=== PATIENT | female | born 1970 | race Caucasian/White ===

== ENCOUNTER 2018-10-23 16:20 | Inpatient (IN) | payer BC, OTHER ==
--- NOTE | 2018-10-23 16:28 | PDOC ---
Rapid Medical Evaluation Chief Complaint: Pain Time Seen by Provider: 10/23/18 16:26 Medical Evaluation: 10/23/18 16:27 I have performed a brief in person evaluation of this patient. The patient's CC: abd pain HPI: Pt is a 48 YO female who states she has had 2 days of N/V/D. She states she was exposed to C Diff. Denies recent abx use or recent travel. PE: Skin: Clear Heart: RRR Lungs: Clear MS. moves all extremities without difficulty. Neuro: Alert and oriented Psch: appropriate affect The patient will proceed to main ED for further evaluation. Discharge Disposition - Diagnosis Abdominal pain Qualifiers: Abdominal location: generalized Qualified Code(s): R10.84 - Generalized abdominal pain - Referrals Referrals: Yandel Dunaway [Primary Care Provider] - - Patient Instructions - Post Discharge Activity
[2018-10-23 16:30] VITALS: BMI 26.4
[2018-10-23 17:03] LABS: BASO % 1.2 % (0-2.0); EOS % 0.2 % (0-4.5); LYMPH % 9.1 % (8-40); MCHC 29.3 g/dl (32.0-36.0); MEAN CELL VOLUME 52.6 fl (80-96); MEAN PLT VOLUME 8.2 fl (7.5-11.1); MONO % 4.4 % (3.8-10.2); NEUT % 85.1 % (42.8-82.8); PLATELET COUNT 584 K/MM3 (134-434); RDW 20.3 % (11.6-15.6)
--- NOTE | 2018-10-23 17:05 | PDOC ---
Attending Attestation - HPI HPI: 10/23/18 19:24 The patient is a 48 year old female with a PMH of left nephrectomy presenting with nausea, vomiting, and diarrhea for the past 2 days. Patient states Patient reports 2 days of worsening non, bilious, non bloody emesis x 4/day, and multiple, loose, non bloody, stools x 8/day. + lightheadedness, fatigue, decreased appetite/PO intake. Patient noted that she is more pale appearing. Denies recent travels. + sick contacts c.diff at employer. No change in diet. Patient denies DAY, vision change, palpitations, leg pain/leg swelling, F,C, CP, SOB, urinary complaints, abdominal pain, BPR, hematuria, constipation, weakness , sensory changes. PMHx: as noted above. Denies h/o abdominal surgery. ROS: as noted Allergies: NKDA
[2018-10-23] MEDS ORDERED: SODIUM CHLORIDE 1,000 ML IV STA (17:11)
[2018-10-23] MEDS ORDERED: ONDANSETRON 4 MG/2 ML VIAL IVPB ONE (17:11)
--- NOTE | 2018-10-23 17:11 | PDOC ---
History of Present Illness - General Chief Complaint: Pain Stated Complaint: Vomiting/Diarrhea Time Seen by Provider: 10/23/18 16:26 - History of Present Illness Initial Comments: 10/23/18 17:27 48 yo F with h/o left nephrectomy, who p/w nausea, vomiting, diarrhea. Patient reports 2 days of worsening non, bilious, non bloody emesis x 4/day, and multiple, loose, non bloody, stools x 8/day. + lightheadedness, fatigue, decreased appetite/PO intake. Patient noted that she is more pale appearing. Denies recent travels. + sick contacts c.diff at employer. No change in diet. Patient denies DAY, vision change, palpitations, leg pain/leg swelling, F,C, CP, SOB, urinary complaints, abdominal pain, BPR, hematuria, constipation, weakness , sensory changes. PMHx: as noted above. Denies h/o abdominal surgery. ROS: as noted Allergies: NKDA Past History - Past Medical History Allergies/Adverse Reactions: Allergies Allergy/AdvReac Type Severity Reaction Status Date / Time No Known Allergies Allergy Verified 10/23/18 16:26 COPD: No - Immunization History Immunization Up to Date: Yes - Suicide/Smoking/Psychosocial Hx Smoking History: Never smoked Hx Alcohol Use: No Drug/Substance Use Hx: No Review of Systems - Review of Systems Comments:: 10/23/18 17:33 GENERAL/CONSTITUTIONAL: + weakness. No fever or chills. HEAD, EYES, EARS, NOSE AND THROAT: No change in vision. No ear pain or discharge. No sore throat. CARDIOVASCULAR: No chest pain or shortness of breath RESPIRATORY: No cough, wheezing, or hemoptysis. GASTROINTESTINAL: +nausea, vomiting, diarrhea. No constipation. GENITOURINARY: No dysuria, frequency, or change in urination. MUSCULOSKELETAL: No joint or muscle swelling or pain. No neck or back pain. SKIN: No rash NEUROLOGIC: + lightheadedness. No headache, vertigo, loss of consciousness, or change in strength/sensation. ENDOCRINE: No increased thirst. No abnormal weight change HEMATOLOGIC/LYMPHATIC: No anemia, easy bleeding, or history of blood clots. ALLERGIC/IMMUNOLOGIC: No hives or skin allergy. *Physical Exam - Vital Signs Last Vital Signs Temp Pulse Resp BP Pulse Ox 99.2 F 102 H 16 95/60 100 01/22/19 16:26 10/23/18 16:26 10/23/18 16:26 10/23/18 16:26 10/23/18 16:26 - Physical Exam Comments: 10/23/18 17:34 GENERAL: Pale appearing. Awake, alert, and fully oriented, in no acute distress HEAD: + Conjuctival pallor. No signs of trauma, normocephalic, atraumatic EYES: PERRLA, EOMI, sclera anicteric, conjunctiva clear ENT: + Dry mucous membranes. Auricles normal inspection, hearing grossly normal , nares patent, oropharynx clear without exudates. NECK: Normal ROM, supple, no lymphadenopathy, JVD, or masses LUNGS: No distress, speaks full sentences, clear to auscultation bilaterally HEART: irregular rate and nml rhythm, normal S1 and S2, no murmurs, rubs or gallops, peripheral pulses normal and equal bilaterally. ABDOMEN: Soft, nontender, normoactive bowel sounds. No guarding, no rebound. No masses. Neg CVA ttp. RECTAL: No gross blood, hemorrhoids, fissures, prolapse EXTREMITIES : Normal inspection, Normal range of motion, no edema. No clubbing or cyanosis. NEUROLOGICAL: Cranial nerves II through XII grossly intact. Normal speech, normal gait, no focal sensorimotor deficits SKIN: Warm, Dry, normal turgor, no rashes or lesions noted Moderate Sedation - Procedure Monitoring Vital Signs: Procedure Monitoring Vital Signs Temperature 99.2 F 10/23/18 16:26 Pulse Rate 102 H 10/23/18 16:26 Respiratory Rate 16 10/23/18 16:26 Blood Pressure 95/60 10/23/18 16:26 O2 Sat by Pulse Oximetry (%) 100 10/23/18 16:26 ED Treatment Course - LABORATORY CBC & Chemistry Diagram: 10/23/18 16:48 10/23/18 16:48 Medical Decision Making - Medical Decision Making 10/23/18 17:31 48 yo F with h/o left nephrectomy, who p/w nausea, vomiting, diarrhea, lightheadedness, and decreased appeitite. BP 95/60, HR 102, AF, A&OX3. Pale appearing. Abdominal exam unremarkable. Denies palpitations, F,C, CP, SOB, urinary complaints, abdominal pain, BPR, hematuria, LOC, sensory changes. Will evaluate for GI bleed, gastroenteritis, gastritis, biliary dz. electrolyte abnml , metabolic and toxic derangements, acid base disturbances, hypoglycemia, infection. Patient seen in E. Pending labs. 10/23/18 17:36 Ed Course: T&S, NS, FOBT 10/23/18 17:41 BUN/CR: 14/1.4 H/H: 4.5/15.2 10/23/18 18:14 Patient endorsed and accepted by Dr. Monteiro. *DC/Admit/Observation/Transfer Diagnosis at time of Disposition: Anemia requiring transfusions, Vomiting and diarrhea - Discharge Dispostion Condition at time of disposition: Stable Decision to Admit order: Yes - Referrals Referrals: Yandel Dunaway [Primary Care Provider] - - Patient Instructions - Post Discharge Activity
[2018-10-23 17:15] LABS: MCH 15.4 pg (25.7-33.7)
[2018-10-23] MEDS ORDERED: ONDANSETRON 4 MG/2 ML VIAL ONE (17:15)
[2018-10-23 17:16] LABS: HEMATOCRIT 15.2 % (32.4-45.2); HEMOGLOBIN 4.5 GM/dL (10.7-15.3)
[2018-10-23 17:31] LABS: ALBUMIN 3.6 g/dl (3.4-5.0); ALK PHOS 100 U/L (45-117); ANION GAP 9 MMOL/L (8-16); BILIRUBIN,TOTAL 0.6 mg/dL (0.2-1); BLOOD UREA NITROGEN 14 mg/dL (7-18); CALCIUM 8.7 mg/dL (8.5-10.1); CHLORIDE 105 mmol/L (98-107); CO2 23 mmol/L (21-32); CREATININE 1.4 mg/dL (0.55-1.3); GLUCOSE,RANDOM 98 mg/dL (74-106); LIPASE 159 U/L (73-393); POTASSIUM 3.8 mmol/L (3.5-5.1); SGOT/AST 18 U/L (15-37); SGPT/ALT 18 U/L (13-61); SODIUM 137 mmol/L (136-145); TOT PROT 7.3 g/dl (6.4-8.2)
--- NOTE | 2018-10-23 19:49 | HP ---
CHIEF COMPLAINT: Fatigue, lightheadedness PCP: None; hasn't seen one in many years HISTORY OF PRESENT ILLNESS: 48yo F with only history of L nephrectromy 2/2 to atrophic kidney as a child who presents today with 2 days of worsening fatigue, lightheadeness, and pallor. She reports these symptoms worsened and about yesterday she felt that her face was much more pale than usual. She also endorses multiple bouts of watery profuse diarrhea (~8 times) and one episode of NBNB vomiting. 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 She does state she observed proper PPM at this time. Currently pt denies any fevers/chills, shortness of breath, chest pain/ discomfort, palpitations, abdominal pain, dysuria, polyuria, back pain. Denies any hematuria, melena, hemoptysis, hematochezia, epistaxis, prior issues with bleeding or bruising. ER course was notable for: (1) H/H 4.5/15 (2) 3UPRBC ordered (3) 1LNS due to BP of 95/60 Recent Travel: Denies PAST MEDICAL HISTORY: Atrophic kidney s/p nephrectromy (L) PAST SURGICAL HISTORY: Nephrectomy Social History: Smoking: Denies Alcohol: Denies Drugs: Denies Lives at home with son; works as US instrumentation technician for [employer] Family History: No clotting, bleeding or hematological problems Allergies No Known Allergies Allergy (Verified 10/23/18 16:26) HOME MEDICATIONS: Home Medications Medication Instructions Recorded NK [No Known Home Medication] 10/23/18 REVIEW OF SYSTEMS As per HPI PHYSICAL EXAMINATION Vital Signs - 24 hr 10/23/18 16:26 Temperature 99.2 F Pulse Rate 102 H Respiratory 16 Rate Blood Pressure 95/60 O2 Sat by Pulse 100 Oximetry (%) GENERAL: NAD, awake, alert, and fully oriented, laying down HEENT: NC/AT, EOMI, MARIANGEL, conjunctival/mucosal/overall facial pallor, sclera anicteric, MMM NECK: Soft, no JVD. LUNGS: CTA bilaterally. No wheezes, and no crackles. No accessory muscle use. HEART: Tachycardic with regular rhythm, normal S1 and S2 without murmurs ABDOMEN: Soft, NT/ND, normoactive bowel sounds, no guarding, no masses, no hepatomegaly to percussion and palpation, no splenomegaly to palpation. RECTAL: Refused due to pt having hemoccult performed already MUSCULOSKELETAL: No CVA tenderness. EXTREMITIES: 2+ distal pulses throughout, warm, well-perfused. No peripheral edema. NEUROLOGICAL: Nonfocal exam. Strength and sensation grossly intact. Normal speech. Gait not observed PSYCHIATRIC: Cooperative. Good eye contact. Appropriate mood and affect. SKIN: Warm, dry, no rashes or lesions noted, no ecchymotic regions, no areas of trauma Laboratory Results 10/23/18 10/23/18 16:48 16:48 WBC 6.0 RBC 2.90 L Hgb 4.5 L* Hct 15.2 L MCV 52.6 L MCH 15.4 L MCHC 29.3 L RDW 20.3 H Plt Count 584 H MPV 8.2 Absolute Neuts (auto) 5.1 Neutrophils % 85.1 H Lymphocytes % 9.1 Monocytes % 4.4 Eosinophils % 0.2 Basophils % 1.2 Nucleated RBC % 0 Sodium 137 Potassium 3.8 Chloride 105 Carbon Dioxide 23 Anion Gap 9 BUN 14 Creatinine 1.4 H Creat Clearance w eGFR 40.31 Random Glucose 98 Calcium 8.7 Total Bilirubin 0.6 AST 18 ALT 18 Alkaline Phosphatase 100 Total Protein 7.3 Albumin 3.6 Lipase 159 ASSESSMENT/PLAN: Severe microcytic anemia Thrombocytosis Elevated Cr Profuse diarrhea --Retic cound, LDH, and iron studies ordered stat prior to PRBC initiation --Transfuse 2U PRBC right away --Will rpt CBC afterwards and likely will need to transfuse more --Hemoccult currently pending, but no scant blood reported by ED physicians --Relative hypotension likely due to intravascular depletion --S/p 1LNS with rpt BP of 100/62 --Will ideally like to transfuse, but maintain MAP 65+ --Thrombocytosis likely 2/2 to increase bone marrow production from severe anemia, but will monitor --Unknown Cr baseline; no other history reportedly of kidney disease --Renal US r/o hydronephrosis on R kidney --UA, UCr, Zulay follow-up --Likely prerenal causes due to severe anemia --Will attempt to obtain old records for comparison studies --Diarrhea differential: viral gastroenteritis vs. c. diff vs. other --C. diff studies --Stool WBC --? TTG --Monitor bicarb and electrolytes if continued diarrhea --Doubt any ischemic colitis in the setting of severe anemia --If diarrhea worsens/doesn't resolve and abdominal pain arises without clear etiology may have to investigate with further imaging FEN: Fluids: Bolus to maintain MAP, but ideally transfuse before isotonic fluids to minimize dilutional effects Electrolyte abnormalities: None currently Nutrition: Regular diet PPX: DVT - Given anemia will target for early ambulation GI - Not indicated currently; may need to add pending hemoccult results Dispo: Med-surg; Transfuse Case discussed with Dr. Rob Black, DO - IM PGY-2 Visit type - Emergency Visit Emergency Visit: Yes ED Registration Date: 10/23/18 Care time: The patient presented to the Emergency Department on the above date and was hospitalized for further evaluation of their emergent condition. - New Patient This patient is new to me today: Yes Date on this admission: 10/23/18 - Critical Care Critical Care patient: No
--- NOTE | 2018-10-23 19:56 | PN ---
Teaching Attending Note Name of Resident: Josue Black ATTENDING PHYSICIAN STATEMENT I saw and evaluated the patient. I reviewed the resident's note and discussed the case with the resident. I agree with the resident's findings and plan as documented. SUBJECTIVE: Seen and examined; please refer to resident note for further details. Briefly, this is a 48 y/o female presenting with several days of diarrhea (FOBT pending) found to have anemia to 4-range Hb; she had an episode of associated bilious emesis. She is hemodynamically stable and afebrile. She came in due to malaise , looking pale. She denies any bloody vomit, etc. No recent trauma. Hx nephrectomy due to stated congenital issues. Usually follows at [facility] but came here today; she works there as a [employer] and has a recent exposure to C Diff. Denies triny abdominal pain. Will try to get old records. 10 sys ROS done and negative aside from HPI PMH and PSH reviewed FH asked and noncontributory Social hx reviewed Medication list reviewed; reconciliation pending. OBJECTIVE: VS, labs, imaging reviewed NT ND +BS NC AT EOMI PERRLA RRR s1/2 no mgr Lungs CTAB w/ sym exp CN2-12 wnl, no fnd normal mood, appropriate affect ASSESSMENT AND PLAN: Presents with diarrhea and concern of C. Diff exposure; found to have marked anemia and concurrent thrombocytosis 1) Severe Microcytic Anemia -Transfusing 3 units PRBC; f/u Hb. Monitor for s/s bleeding -Iron studies, retic count, LDH pending. B12/folate pending -Consulting hematology/oncology -Ordering peripheral smear -Considering underlying causes; FOBT pending. If positive would be cause for prompt GI evaluation. Considering infectious diarrhea (shigella, etc.) as potential cause so will check stool cx. No hx menorrhagia. Monitor for bleeding on the floor. 2) Acute Diarrheal Illness, concern of cdiff, occasional bilious vomitting -Checking lactoferrin, stool WBC, stool cx, Cdiff -Got 1L NS and will get blood -PRN Zofran -If she develops abdominal pain or sx worsen consider obtaining CT. No need for empiric abx at this juncture. 3) Thrombocytosis -Checking peripheral smear; trending CBC. Followup with hematology. Broad ddx. 4) UBALDO -Likely prerenal due to the vomiting/diarrhea. Got 1L and getting blood. Will recheck and if worsening will call nephrology. Monitor BMP and UOP. 5) Hx Nephrectomy -Review old records FENA -Got 1L; giving 3 units. If she becomes hypotensive, etc. etc. can add on further isotonic bolus but will hold off for now -PRN replete -Regular -As tolerated Full code
[2018-10-23 22:23] LABS: ANISOCYTOSIS 1+
[2018-10-23 22:24] LABS: MACROCYTOSIS 1+; OVALOCYTE 1+; PLATELET ESTIMATE SLT INCREASE
[2018-10-24 10:43] LABS: BASO % 1.1 % (0-2.0); EOS % 0.9 % (0-4.5); HEMATOCRIT 21.3 % (32.4-45.2); LYMPH % 16.1 % (8-40); MCHC 31.7 g/dl (32.0-36.0); MEAN CELL VOLUME 62.7 fl (80-96); MEAN PLT VOLUME 8.3 fl (7.5-11.1); MONO % 11.7 % (3.8-10.2); NEUT % 70.2 % (42.8-82.8); PLATELET COUNT 396 K/MM3 (134-434); RBC 3.39 M/mm3 (3.60-5.2); RDW 32.6 % (11.6-15.6); WHITE BLOOD COUNT 4.8 K/mm3 (4.0-10.0)
[2018-10-24 10:51] LABS: MCH 19.8 pg (25.7-33.7)
[2018-10-24 10:53] LABS: HEMOGLOBIN 6.7 GM/dL (10.7-15.3)
[2018-10-24 11:10] LABS: ANION GAP 10 MMOL/L (8-16); BLOOD UREA NITROGEN 12 mg/dL (7-18); CALCIUM 8.7 mg/dL (8.5-10.1); CHLORIDE 111 mmol/L (98-107); CO2 20 mmol/L (21-32); CREATININE 1.2 mg/dL (0.55-1.3); GLUCOSE,RANDOM 81 mg/dL (74-106); POTASSIUM 3.7 mmol/L (3.5-5.1); SODIUM 142 mmol/L (136-145)
--- NOTE | 2018-10-24 12:50 | EKG ---
Test Reason : Blood Pressure : / mmHG Vent. Rate : 088 BPM Atrial Rate : 088 BPM P-R Int : 140 ms QRS Dur : 090 ms QT Int : 344 ms P-R-T Axes : 035 027 043 degrees QTc Int : 416 ms NORMAL SINUS RHYTHM CANNOT RULE OUT ANTERIOR INFARCT , AGE UNDETERMINED ABNORMAL ECG NO PREVIOUS ECGS AVAILABLE Confirmed by MATTHEW PRIETO MD ([id number]) on 10/24/2018 12:49:40 PM Referred By: Confirmed By:MATTHEW PRIETO MD
[2018-10-24] MEDS: LACTATED RINGERS SOLUTION 1,000 ML/1,000 ML INFUS.BAG IV SCH (16:33)
--- NOTE | 2018-10-24 18:02 | PN ---
<YannickdoriYanethAmna - Last Filed: 10/24/18 22:02> Physical Exam: SUBJECTIVE: Patient seen and examined at bedside this morning. No acute events overnight. Patient is a 48 year old female with past medical history of 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 Patient also reported multiple episodes of watery diarrhea with 1 episode of NBNB vomiting. Today, after receiving 2 units prbc with repeat Hgb 6.7, patient still reports weakness and multiple episodes of loose watery diarrhea. Otherwise she denies fever, chills, headache, nausea, vomiting, chest pain, SOB, palpitations, abdominal pain, urinary symptoms. OBJECTIVE: Vital Signs Period Temp Pulse Resp BP Sys/Siu Pulse Ox Last 24 Hr 98.2 F-99.8 F 72-105 18-20 90-114/45-62 100-100 GENERAL: The patient is awake, alert, and fully oriented, in no acute distress. HEAD: Normal with no signs of trauma. EYES: PERRLA, EOMI, sclera anicteric, conjunctiva clear. ENT: Ears normal, nares patent, oropharynx clear without exudates, dry mucous membranes. NECK: Trachea midline, full range of motion, supple. LUNGS: Breath sounds equal, clear to auscultation bilaterally. HEART: Regular rate and rhythm, S1, S2 without murmur, rub or gallop. ABDOMEN: Soft, nontender, nondistended, normoactive bowel sounds. EXTREMITIES: 2+ pulses, warm, well-perfused, no edema. SKIN: Warm, dry, normal turgor, no rashes or lesions noted Laboratory Results - last 24 hr 10/23/18 10/23/18 10/23/18 16:48 17:57 19:52 WBC RBC Hgb Hct MCV MCH MCHC RDW Plt Count MPV Absolute Neuts (auto) Neutrophils % Lymphocytes % Monocytes % Eosinophils % Basophils % Nucleated RBC % Hypochromia 3+ Platelet Estimate Slt increase Platelet Comment Polychromasia 1+ Poikilocytosis 1+ Anisocytosis 1+ Microcytosis 3+ Macrocytosis 1+ Ovalocytes 1+ Retic Count Sodium Potassium Chloride Carbon Dioxide Anion Gap BUN Creatinine Creat Clearance w eGFR Random Glucose Calcium Ferritin LD Total Stool Occult Blood Negative Blood Type O POSITIVE Antibody Screen Negative Crossmatch See Detail 10/23/18 10/23/18 10/24/18 19:52 20:41 10:20 WBC RBC Hgb Hct MCV MCH MCHC RDW Plt Count MPV Absolute Neuts (auto) Neutrophils % Lymphocytes % Monocytes % Eosinophils % Basophils % Nucleated RBC % Hypochromia Platelet Estimate Platelet Comment Polychromasia Poikilocytosis Anisocytosis Microcytosis Macrocytosis Ovalocytes Retic Count 2.38 H Sodium Potassium Chloride Carbon Dioxide Anion Gap BUN Creatinine Creat Clearance w eGFR Random Glucose Calcium Ferritin 7.7 L LD Total 220 Stool Occult Blood Blood Type Antibody Screen Crossmatch 10/24/18 10/24/18 10:20 10:20 WBC 4.8 RBC 3.39 L Hgb 6.7 L* Hct 21.3 L D MCV 62.7 L D MCH 19.8 L D MCHC 31.7 L RDW 32.6 H Plt Count 396 D MPV 8.3 Absolute Neuts (auto) 3.4 Neutrophils % 70.2 Lymphocytes % 16.1 D Monocytes % 11.7 H D Eosinophils % 0.9 D Basophils % 1.1 Nucleated RBC % 0 Hypochromia Platelet Estimate Platelet Comment Polychromasia Poikilocytosis Anisocytosis Microcytosis Macrocytosis Ovalocytes Retic Count Sodium 142 Potassium 3.7 Chloride 111 H Carbon Dioxide 20 L Anion Gap 10 BUN 12 Creatinine 1.2 Creat Clearance w eGFR 48.15 Random Glucose 81 Calcium 8.7 Ferritin LD Total Stool Occult Blood Blood Type Antibody Screen Crossmatch Active Medications Generic Name Dose Route Start Last Admin Trade Name Freq PRN Reason Stop Dose Admin Lactated Ringer's 1,000 ml in 1,000 mls @ 75 mls/hr 10/24/18 16:15 10/24/18 16:33 Lactated Ringers Solution IV 75 mls/hr [facility] Administration ASSESSMENT/PLAN: Patient is a 48 year old female with past medical history of 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 Patient also reported multiple episodes of watery diarrhea with 1 episode of NBNB vomiting. #Microcytic anemia: acute vs acute on chronic -Patient has not followed up with PCP >5 years -s/p 3 units pRBC, repeat CBC ordered -Will transfuse PRN to keep Hgb >7 -FOBT negative -Retic count 2.38 -iron studies, LDH ordered #Diarrhea: likely 2/2 acute gastroenteritis -C. diff negative -Stool WBC negative -Will start IV LR -Will monitor electrolytes #Elevated Creatinine: resolved -Cr 1.4 --> 1.2 -likely pre-renal from GI losses and severe anemia -Renal US - s/p left nephrectomy. Right kidney appears grossly unremarkable. #FEN -IV LR @ 75 -Electrolytes wnl, routine bmp monitoring -Regular diet #Prophylaxis -Early ambulation #Disposition -full code -med surg Visit type - Emergency Visit Emergency Visit: Yes ED Registration Date: 10/23/18 Care time: The patient presented to the Emergency Department on the above date and was hospitalized for further evaluation of their emergent condition. - New Patient This patient is new to me today: Yes Date on this admission: 10/24/18 - Critical Care Critical Care patient: No <Niraj Rivas - Last Filed: 10/24/18 22:13> Physical Exam: Seen and examined with resident; agree with above A and P aside from how documented in my note
[2018-10-24 19:07] LABS: HEMOGLOBIN 8.6 GM/dL (10.7-15.3); MCHC 31.9 g/dl (32.0-36.0); MEAN CELL VOLUME 65.9 fl (80-96); MEAN PLT VOLUME 8.2 fl (7.5-11.1); PLATELET COUNT 404 K/MM3 (134-434); RBC 4.09 M/mm3 (3.60-5.2); RDW 33.6 % (11.6-15.6); WHITE BLOOD COUNT 4.7 K/mm3 (4.0-10.0)
--- NOTE | 2018-10-24 19:27 | PN ---
Teaching Attending Note Name of Resident: Josue Fitzpatrick ATTENDING PHYSICIAN STATEMENT I saw and evaluated the patient. I reviewed the resident's note and discussed the case with the resident. I agree with the resident's findings and plan as documented. SUBJECTIVE: seen at 1 pm No pain, feels tired . had 8 BMs by time of evaluation . no h/o GI or bleed. no more menstruation . no PMD visit in 5 years OBJECTIVE: NAD , looks tired. CV: RRR Lungs: CTAB Abd:soft, NT, ND , NL BS Ext: no edema ASSESSMENT AND PLAN: 48 y/o lady with h/o nephrectomy who presented with N/V/diarrhea and was found to have severe anemia 1- Severe symptomatic anemia: iron def on labs , indicating possible chronic loss vs poor nutrition. - HB improved s/p 3 units - monitor in am - out pt GI w/u ofr EGD and colo . if neg need heme w/u 2- N/V /Diarrhea : likely viral . c diff neg . - check stool cx - check flu swab, as influenza can present in GI sx - cont hydration - hold off any Abx 3- UBALDO , due to volume depletion . h/o nephrectomy . Cr improved will probably dc tomorrow
[2018-10-25 04:15] LABS: SERUM IRON SATURATION 8 % (15-55); TOTAL IRON BINDING CAPACITY 412 ug/dL (250-450); UIBC 380 ug/dL (131-425)
[2018-10-25] MEDS: LACTATED RINGERS SOLUTION 1,000 ML/1,000 ML INFUS.BAG IV SCH (06:11)
[2018-10-25 07:19] LABS: HEMATOCRIT 24.2 % (32.4-45.2); HEMOGLOBIN 7.6 GM/dL (10.7-15.3); MCH 20.9 pg (25.7-33.7); MCHC 31.5 g/dl (32.0-36.0); MEAN CELL VOLUME 66.4 fl (80-96); MEAN PLT VOLUME 8.2 fl (7.5-11.1); PLATELET COUNT 338 K/MM3 (134-434); RBC 3.65 M/mm3 (3.60-5.2); RDW 33.1 % (11.6-15.6); WHITE BLOOD COUNT 4.6 K/mm3 (4.0-10.0)
[2018-10-25 07:47] LABS: ANION GAP 9 MMOL/L (8-16); BLOOD UREA NITROGEN 8 mg/dL (7-18); CHLORIDE 111 mmol/L (98-107); CO2 22 mmol/L (21-32); GLUCOSE,RANDOM 78 mg/dL (74-106); MAGNESIUM 1.9 mg/dL (1.8-2.4); PHOSPHOROUS 3.8 mg/dL (2.5-4.9); POTASSIUM 3.9 mmol/L (3.5-5.1); SODIUM 142 mmol/L (136-145)
--- NOTE | 2018-10-25 14:22 | PN ---
Teaching Attending Note Name of Resident: Amna De Los Santos ATTENDING PHYSICIAN STATEMENT I saw and evaluated the patient. I reviewed the resident's note and discussed the case with the resident. I agree with the resident's findings and plan as documented. SUBJECTIVE: No fever or chills . No abd pain. 2 episodes of diarrhea today . feels stronger OBJECTIVE: NAD CV: RRR Lungs: CTAB Abd:soft, NT, ND , NL BS Ext: no edema ASSESSMENT AND PLAN: 48 y/o lady with h/o nephrectomy who presented with N/V/diarrhea and was found to have severe anemia 1- Severe symptomatic iron def anemia: HB improved after blood transfusion . - start iron supplements at dc daily then increase to TID - f/u with GI for EGD and colo - if w/u neg she needs heme f/u 2- N/V /Diarrhea : likely viral . c diff neg . improved - stool cx was not done - flu swab neg - cont with pO hydration 3- UBALDO , due to volume depletion . h/o nephrectomy . Cr improved DC home today
[2018-10-25 15:03] VITALS: BP 130/82; PULSE 82; TEMP 98.6
--- NOTE | 2018-10-25 17:16 | DS ---
Physical Exam: SUBJECTIVE: Patient seen and examined at bedside this morning. No acute events overnight. Patient reported having 3 episodes of loose watery stools overnight. Otherwise, she denies weakness, headache, dizziness, fever, chills, abdominal pain, urinary symptoms. Patient able to tolerate regular food. OBJECTIVE: Vital Signs Period Temp Pulse Resp BP Sys/Siu Pulse Ox Last 24 Hr 97.8 F-98.6 F 68-82 18-20 113-141/49-82 98-98 PHYSICAL EXAM GENERAL: The patient is awake, alert, and fully oriented, in no acute distress. HEAD: Normal with no signs of trauma. EYES: PERRLA, EOMI, sclera anicteric, conjunctiva clear. ENT: Ears normal, nares patent, oropharynx clear without exudates, dry mucous membranes. NECK: Trachea midline, full range of motion, supple. LUNGS: Breath sounds equal, clear to auscultation bilaterally. HEART: Regular rate and rhythm, S1, S2 without murmur, rub or gallop. ABDOMEN: Soft, nontender, nondistended, normoactive bowel sounds. EXTREMITIES: 2+ pulses, warm, well-perfused, no edema. SKIN: Warm, dry, normal turgor, no rashes or lesions noted LABS Laboratory Results - last 24 hr 10/24/18 10/24/18 10/24/18 10:20 18:35 23:15 WBC 4.7 RBC 4.09 Hgb 8.6 L Hct 27.0 L D MCV 65.9 L MCH 21.0 L MCHC 31.9 L RDW 33.6 H Plt Count 404 MPV 8.2 Sodium Potassium Chloride Carbon Dioxide Anion Gap BUN Creatinine Creat Clearance w eGFR Random Glucose Calcium Phosphorus Magnesium Iron 32 TIBC 412 Iron Saturation 8 L Influenza A (Rapid) Negative Influenza B (Rapid) Negative 10/25/18 10/25/18 06:30 06:30 WBC 4.6 RBC 3.65 Hgb 7.6 L Hct 24.2 L MCV 66.4 L MCH 20.9 L MCHC 31.5 L RDW 33.1 H Plt Count 338 MPV 8.2 Sodium 142 Potassium 3.9 Chloride 111 H Carbon Dioxide 22 Anion Gap 9 BUN 8 Creatinine 1.0 Creat Clearance w eGFR 59.43 Random Glucose 78 Calcium 8.0 L Phosphorus 3.8 Magnesium 1.9 Iron TIBC Iron Saturation Influenza A (Rapid) Influenza B (Rapid) HOSPITAL COURSE: Date of Admission:10/23/18 Date of Discharge: 10/25/18 Patient is a 48 year old female with past medical history of 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 Patient also reported multiple episodes of watery diarrhea with 1 episode of NBNB vomiting. At the ED, patient was noted to be anemic with hemoglobin of 4.5. Patient received 3 units pRBC. FOBT was negative. Iron studies revealed patient had Iron deficiency anemia. Patient also had multiple bouts of loose watery diarrhea, C.diff stool and stool WBC were negative. She was given IV fluids and diarrhea improved. She also initially presented with UBALDO, likely pre-renal, and resolved with fluids. Patient was discharged with prescription for Feosol and with instructions to follow-up with PCP for a repeat CBC and with GI for a EGD/colonoscopy. Minutes to complete discharge: 40 Discharge Summary Reason For Visit: TRANSFUSION-DEPENDENT ANEMIA/VOMITTING Condition: Improved - Instructions Diet, Activity, Other Instructions: Your visit You were admitted to the hospital because you were feeling tired and had lightheadedness. You were found to be anemic or your red blood cells were low, likely from being iron deficient. You received 3 bags of blood. You also had diarrhea. Your stool was tested and was negative of any concern. You were hydrated with IV fluids. Medications -Please take iron supplements for your anemia: 1. Ferrous sulfate 325mg daily, then increase to twice a day in 1 week then to 3 time a day in another week . Please note that this will cause your stool to be dark-colored and can cause constipation . take stool softener ( colace ) daily if you need to . - stay hydrated please Follow-up -Please follow-up with your primary care doctor within 1 week. Please call the adjunct [facility] for medical [facility] clinic at [facility] at [phone] to schedule an appointment with Dr. Jackson (Wed 9am-12pm). -Follow-up with the measuring clerk (Dr. Currie). You need to have upper endoscopy and colonoscopy done. if your GI work up is negative , you will need hematology follow up Additional info Call 911 or go to the ED if with any worsening fever, chills, headache, dizziness, diarrhea, abdominal pain, bloody stools, shortness of breath of any new concerns noted. Referrals: [facility] [place] [facility] [place] [Provider Group] - 1 Week Joseph Currie DO [Staff Physician] - Disposition: HOME - Home Medications Comprehensive Discharge Medication List: Ambulatory Orders Ferrous Sulfate [Feosol] 325 mg PO DAILY #30 tablet 10/25/18 This patient is new to me today: No Emergency Visit: Yes ED Registration Date: 10/23/18 Care time: The patient presented to the Emergency Department on the above date and was hospitalized for further evaluation of their emergent condition. Critical Care patient: No - Discharge Referral Referred to [facility] No
== END 2018-10-25 16:50 | disposition home or self-care (01) | DRG 812 ==
LOC: JER 16:20 → JERBED 17:37 → J7W 22:00
PROVIDERS: ADMIT Internal Medicine; ATTEND Internal Medicine
PROC: 30233N1 Transfusion of Nonautologous Red Blood Cells into Peripheral Vein, Percutaneous Approach (ICD-10-PCS; principal; 2018-10-25)
DX: D50.9 Iron deficiency anemia, unspecified (principal); N17.9 Acute kidney failure, unspecified; R19.7 Diarrhea, unspecified; E86.9 Volume depletion, unspecified; D47.3 Essential (hemorrhagic) thrombocythemia; I95.9 Hypotension, unspecified
CPT/HCPCS: 36415; 36430; 36511; 76775-TC; 80048; 80053; 82272; 82728; 83540; 83550; 83615; 83690; 83735; 84100; 85025; 85027; 85044; 86850; 86900; 86901; 86922; 87205; 87324; 87449; 87804; 93005; 93010; 99283-25; J7030; P9038; P9058

== ENCOUNTER 2021-08-18 02:32 | Emergency (ER) | payer SELFPAY ==
[2021-08-18 02:43] VITALS: BP 143/95; PULSE 74; TEMP 97.1; BMI 26.4
[2021-08-18] MEDS ORDERED: ONDANSETRON 4 MG/2 ML VIAL IVPUSH ONE (03:01)
[2021-08-18] MEDS ORDERED: ACETAMINOPHEN 1000 MG/100 ML VIAL IVPB ONE (03:02)
[2021-08-18] MEDS ORDERED: LACTATED RINGERS SOLUTION 1000 ML INFUS.BAG IV ONE (03:02)
[2021-08-18] MEDS ORDERED: MAGNESIUM SULF 50% (8.12 MEQ/2 ML-1 GM VIAL) IVPB ONE (03:08)
[2021-08-18] MEDS ORDERED: KCL 10 MEQ IVPB 10 MEQ/100 ML INFUS.BAG IVPB SCH (03:15)
[2021-08-18] MEDS ORDERED: ONDANSETRON 4 MG/2 ML VIAL ONE (03:17)
[2021-08-18] MEDS ORDERED: MAGNESIUM SULFATE IN WATER 2 GM/50 ML IVPB IVPB ONE (03:18)
[2021-08-18] MEDS ORDERED: ACETAMINOPHEN INJECTION 100 ML IVPB ONE (03:20)
[2021-08-18] MEDS ORDERED: KCL 10 MEQ IVPB 10 MEQ/100 ML INFUS.BAG IVPB ONE (03:36)
[2021-08-18 04:07] LABS: BASO % 0.4 % (0-2.0); EOS % 0.1 % (0-4.5); HEMATOCRIT 42.5 % (32.4-45.2); HEMOGLOBIN 14.6 GM/dL (10.7-15.3); MCH 30.1 pg (25.7-33.7); MCHC 34.5 g/dl (32.0-36.0); MEAN CELL VOLUME 87.4 fl (80-96); MEAN PLT VOLUME 8.7 fl (7.5-11.1); MONO % 3.5 % (3.8-10.2); PLATELET COUNT 496 10^3/uL (134-434); RBC 4.86 M/mm3 (3.60-5.2); RDW 13.4 % (11.6-15.6); WHITE BLOOD COUNT 9.4 K/mm3 (4.0-10.0)
[2021-08-18 04:09] LABS: CHLORIDE 103 mmol/L (98-107); SODIUM 140 mmol/L (136-145)
[2021-08-18 04:11] LABS: CALCIUM 9.9 mg/dL (8.5-10.1)
[2021-08-18 04:12] LABS: ANION GAP 6 MMOL/L (8-16); BLOOD UREA NITROGEN 25.2 mg/dL (7-18); CO2 31 mmol/L (21-32); GLUCOSE,RANDOM 164 mg/dL (74-106)
[2021-08-18 04:15] LABS: CREATININE 1.3 mg/dL (0.55-1.3); SGOT/AST 30 U/L (15-37); SGPT/ALT 24 U/L (13-61)
[2021-08-18 04:17] LABS: BILIRUBIN,TOTAL 0.9 mg/dL (0.2-1); TOT PROT 7.8 g/dl (6.4-8.2)
[2021-08-18 04:18] LABS: ALK PHOS 134 U/L (45-117)
== END 2021-08-18 04:42 | disposition home or self-care (01) ==
LOC: JER 02:32
PROC: 3E0333Z Introduction of Anti-inflammatory into Peripheral Vein, Percutaneous Approach (ICD-10-PCS; principal; 2021-08-18)
PROC: 3E033GC Introduction of Other Therapeutic Substance into Peripheral Vein, Percutaneous Approach (ICD-10-PCS; 2021-08-18)
PROC: 3E033GC Introduction of Other Therapeutic Substance into Peripheral Vein, Percutaneous Approach (ICD-10-PCS; 2021-08-18)
PROC: 3E033GC Introduction of Other Therapeutic Substance into Peripheral Vein, Percutaneous Approach (ICD-10-PCS; 2021-08-18)
DX: E86.0 Dehydration (principal); T62.91XA Toxic effect of unspecified noxious substance eaten as food, accidental (unintentional), initial encounter
CPT/HCPCS: 36415; 80053; 82550; 82553; 84484; 85025; 93005; 93010; 99284-25; J0131